=== PATIENT | male | born 1960 | race Caucasian/White ===

== ENCOUNTER 2017-08-31 01:55 | Emergency (ER) | payer BC ==
[2017-08-31 02:18] VITALS: RESP 20
--- NOTE | 2017-08-31 02:24 | C.PDOC ---
History Of Present Illness Patient is a 56 y/o male who presents to the ED with a complaint of laceration to left foot. Patient reports to have been drinking cocktails when glass broke on the floor and sliced foot. Patient denies any medical history or other physical complaints at this time. Admits to Hx of hernia repair and allergy to pennicillin. Time Seen by Provider: 08/31/17 02:23 Chief Complaint (Nursing): Abnormal Skin Integrity History Per: Patient History/Exam Limitations: no limitations Onset/Duration Of Symptoms: Hrs Current Symptoms Are (Timing): Still Present Location Of Injury: Left: Foot Quality Of Symptoms: Other (laceration to left foot) Recent travel outside of the [place]: No Past Medical History Reviewed: Historical Data, Nursing Documentation, Vital Signs Vital Signs: Last Vital Signs Temp 97.8 F 08/31/17 02:17 Pulse 68 08/31/17 02:17 Resp 20 08/31/17 02:17 BP 115/70 08/31/17 02:17 Pulse Ox 97 08/31/17 05:47 - Medical History PMH: No Chronic Diseases Surgical History: Hernia Repair Family History: States: No Known Family Hx - Social History Hx Tobacco Use: No (former smoker) Hx Alcohol Use: Yes Hx Substance Use: No Review Of Systems Skin: Positive for: Other (laceration to left foot) Neurological: Negative for: Weakness, Numbness, Dizziness Physical Exam - Physical Exam Appears: Well, Non-toxic, No Acute Distress Skin: Normal Color, Warm, Dry, Other (1cm laceration on forefoot proximal from great toe; no active bleeding) Head: Atraumatic, Normacephalic Oral Mucosa: Moist Chest: Symmetrical Cardiovascular: Rhythm Regular, No Murmur Respiratory: Normal Breath Sounds, No Rales, No Rhonchi, No Wheezing Gastrointestinal/Abdominal: Soft, No Tenderness, No Guarding, No Rebound Neurological/Psych: Oriented x3, Normal Speech, Normal Cognition ED Course And Treatment O2 Sat by Pulse Oximetry: 97 Progress Note: Left foot XR ordered. Laceration - Laceration Repair left foot Description Of Wound: Linear Wound Cleansed With: Betadine Anesthesia: Lidocaine 1% Wound Examination: Foreign Material Removed W/Irrigation (aggressive irrigation and removal of two foreign bodies) Wound Debridement/Revision: Wound Debrided Wound Closure: Suture (3) Suture Technique And Material Used: Interrupted, Nylon Wound Complexity: Simple Disposition Counseled Patient/Family Regarding: Diagnosis, Need For Followup - Disposition Disposition: HOME/ ROUTINE Disposition Time: 05:46 Forms: [facility] (Armenian) - Clinical Impression Clinical Impression: Laceration, Foreign body (FB) in soft tissue - Scribe Statement The provider has reviewed the documentation as recorded by the Scribe Naa Crooks All medical record entries made by the Scribe were at my direction and personally dictated by me. I have reviewed the chart and agree that the record accurately reflects my personal performance of the history, physical exam, medical decision making, and the department course for this patient. I have also personally directed, reviewed, and agree with the discharge instructions and disposition.
[2017-08-31] MEDS ORDERED: Lidocaine 1% PF (5ml) Amp INJ ONE (05:20)
[2017-08-31] MEDS ORDERED: Lidocaine Hydrochloride 10 ML INJ ONE (05:22)
[2017-08-31 05:56] VITALS: BP 126/76; PULSE 84; TEMP 98.6; O2SAT 96
--- NOTE | 2017-08-31 16:20 | RAD ---
PROCEDURE: Left Foot Radiographs. HISTORY: trauma foreign body COMPARISON: None. FINDINGS: BONES: No fracture JOINTS: Normal. SOFT TISSUES: Radiopaque foreign body in soft tissues dorsal/medial to mid 1st metatarsal. OTHER FINDINGS: None. IMPRESSION: Radiopaque foreign body. No acute fracture.
== END 2017-08-31 06:02 | disposition home or self-care (01) ==
LOC: C.ER 01:55
DX: S91.322A Laceration with foreign body, left foot, initial encounter (principal); W25.XXXA Contact with sharp glass, initial encounter